=== PATIENT | male | born 1965 | race Caucasian/White ===

== ENCOUNTER 2016-06-15 20:25 | Inpatient (IN) | payer MEDICARE, MEDICAID ==
[~2016-06-15] VITALS: Ht 165.1 cm; Wt 78.0 kg
[2016-06-15 20:00] VITALS: BP 119/82
[~2016-06-15 20:25] MED LIST: ASPI325T2 PO; CALC667C4 PO; CINA30 PO; CLOP75TA33 PO; COR12 PO; KEPP500 PO; LOSA50TA20 PO; MEMA10TA11 PO; MEMA1CAP PO; NEPVIT PO; PANT40TA4 PO; PRAV80TA21 PO; RANO500T3 PO
[2016-06-15 21:30] VITALS: BP 119/82
[2016-06-15] MEDS ORDERED: DIPHENHYDRAMINE 50MG/ML VIAL IV PRN (21:30)
[2016-06-15] MEDS ORDERED: LORAZEPAM 2MG/ML CPJ IV PRN (21:30)
[2016-06-15] MEDS ORDERED: CLONIDINE 0.1MG TABLET PO PRN (21:30)
[2016-06-15] MEDS ORDERED: ONDANSETRON HCL 4MG/2ML VIAL IV PRN (21:30)
[2016-06-15] MEDS ORDERED: NITROGLYCERIN 0.4MG TABLET SL SL PRN (21:30)
[2016-06-15] MEDS ORDERED: GUAIFENESIN 200MG/10ML SUGAR FREE UDC PO PRN (21:30)
[2016-06-15] MEDS ORDERED: TRAMADOL 50MG TABLET PO PRN (21:30)
[2016-06-15] MEDS ORDERED: IPRATROPIUM/ALBUTEROL 0.5-3(2.5)MG/3ML NEB HHN PRN (21:30)
[2016-06-15] MEDS ORDERED: ZOLPIDEM TARTRATE 5MG TABLET PO PRN (21:30)
[2016-06-15] MEDS ORDERED: DOCUSATE SODIUM 100MG CAPSULE PO PRN (21:30)
[2016-06-15] MEDS ORDERED: DEXTROSE 50% WATER 50ML SYRINGE IV PRN (21:30)
[2016-06-15] MEDS ORDERED: ACETAMINOPHEN 325MG TABLET PO PRN (21:30)
[2016-06-15] MEDS: BLOOD SUGAR DIAGNOSTIC STRIP TEST SCH (22:00)
[2016-06-15] MEDS: INSULIN LISPRO 100 UNITS/ML SUBCUT SCH (22:00)
[2016-06-15] MEDS: CARVEDILOL 12.5MG TABLET PO SCH (22:55)
[2016-06-15] MEDS: LEVETIRACETAM 500MG TABLET PO SCH (23:13)
[2016-06-15] MEDS: ATORVASTATIN CALCIUM 40MG TABLET PO SCH (23:13)
[2016-06-16] MEDS: BLOOD SUGAR DIAGNOSTIC STRIP TEST SCH ×4 (06:57→20:56)
[2016-06-16] MEDS: INSULIN LISPRO 100 UNITS/ML SUBCUT SCH ×4 (06:57→22:03)
[2016-06-16 07:11] LABS: BASOPHILS % 1.1 % (0.0-2.0); EOSINOPHILS % 5.1 % (0.0-5.0); HEMATOCRIT. 32.8 % (42.0-52.0); HEMOGLOBIN. 11.1 g/dL (14.0-18.0); LYMPHOCYTES % 36.2 % (20.0-50.0); MEAN CORPUSCULAR HEMOGLOBIN 33.3 pg (28.0-32.0); MEAN CORPUSCULAR HGB CONC 33.8 g/dL (31.0-37.0); MEAN CORPUSCULAR VOLUME 98.5 fL (80.0-94.0); MEAN PLATELET VOLUME 9.9 fl (7.4-10.4); MONOCYTES % 12.7 % (2.0-8.0); NEUTROPHILS % 44.9 % (40.0-76.0); PLATELET 148 x1000/uL (130-400); RED BLOOD CELL COUNT 3.33 mill/uL (4.7-6.1); RED CELL DISTRIBUTION WIDTH 13.2 % (11.6-14.6); WHITE BLOOD COUNT 6.9 x1000/uL (4.5-11.0)
[2016-06-16 07:24] LABS: ALANINE AMINOTRANSFERASE 35 IU/L (13-61); ALBUMIN 3.2 g/dL (3.4-5.0); ANION GAP 19; CALCIUM 8.2 mg/dL (8.5-10.1); CARBON DIOXIDE 25 mEq/L (21-32); CHLORIDE 96 mEq/L (98-107); INDEX HEMOLYSI 1 (1-3); INDEX ICTERIC 1 (1-4); INDEX LIPEMIC 1 (1-3); UREA NITROGEN BLOOD 52 mg/dL (7-21); eGFR 5 mL/min (>60)
[2016-06-16 07:28] LABS: PREALBUMIN 30.4 mg/dL (20.0-40.0)
[2016-06-16 07:59] VITALS: BP 153/83
[2016-06-16] MEDS: FAMOTIDINE 20MG TABLET PO SCH (08:55)
[2016-06-16] MEDS: SEVELAMER CARBONATE 800 MG TABLET PO SCH ×3 (08:55→16:44)
[2016-06-16] MEDS: LEVETIRACETAM 500MG TABLET PO SCH ×2 (08:56→20:54)
[2016-06-16] MEDS: CLOPIDOGREL 75MG TABLET PO SCH (08:56)
[2016-06-16] MEDS: FOLIC ACID/VITAMIN B COMP W-C TABLET PO SCH (08:56)
[2016-06-16] MEDS: ZINC SULFATE 220 MG ( 50 ) CAPSULE PO SCH (08:56)
[2016-06-16] MEDS: ENOXAPARIN 30MG/0.3ML SYR SUBCUT SCH (08:57)
[2016-06-16] MEDS: ASPIRIN 325MG EC TABLET PO SCH (08:57)
[2016-06-16] MEDS: CARVEDILOL 12.5MG TABLET PO SCH ×2 (09:00→20:56)
[2016-06-16] MEDS: LOSARTAN POTASSIUM 50 MG TABLET PO SCH (09:00)
[2016-06-16] MEDS: CINACALCET HCL 30MG TABLET PO SCH (16:44)
[2016-06-16 20:00] VITALS: BP 144/70
[2016-06-16] MEDS: ATORVASTATIN CALCIUM 40MG TABLET PO SCH (20:54)
[2016-06-17] MEDS: BLOOD SUGAR DIAGNOSTIC STRIP TEST SCH ×4 (06:18→20:44)
[2016-06-17] MEDS: INSULIN LISPRO 100 UNITS/ML SUBCUT SCH ×4 (06:19→21:00)
[2016-06-17 08:00] VITALS: BP 146/62
[2016-06-17] MEDS: FOLIC ACID/VITAMIN B COMP W-C TABLET PO SCH (09:17)
[2016-06-17] MEDS: FAMOTIDINE 20MG TABLET PO SCH (09:17)
[2016-06-17] MEDS: ZINC SULFATE 220 MG ( 50 ) CAPSULE PO SCH (09:17)
[2016-06-17] MEDS: CARVEDILOL 12.5MG TABLET PO SCH ×2 (09:17→21:26)
[2016-06-17] MEDS: CLOPIDOGREL 75MG TABLET PO SCH (09:17)
[2016-06-17] MEDS: SEVELAMER CARBONATE 800 MG TABLET PO SCH ×3 (09:17→19:03)
[2016-06-17] MEDS: LEVETIRACETAM 500MG TABLET PO SCH ×2 (09:17→21:26)
[2016-06-17] MEDS: LOSARTAN POTASSIUM 50 MG TABLET PO SCH (09:17)
[2016-06-17] MEDS: ENOXAPARIN 30MG/0.3ML SYR SUBCUT SCH (09:18)
[2016-06-17] MEDS: ASPIRIN 325MG EC TABLET PO SCH (09:19)
[2016-06-17] MEDS ORDERED: DEXTROSE 50% WATER 50ML SYRINGE IV PRN (10:45)
[2016-06-17] MEDS: LACTULOSE 20G/30ML UDC PO NR ×3 (12:00→21:25)
[2016-06-17] MEDS: CINACALCET HCL 30MG TABLET PO SCH (16:52)
[2016-06-17] MEDS: DOCUSATE SODIUM 100MG CAPSULE PO SCH (16:52)
[2016-06-17 20:00] VITALS: BP 134/73
[2016-06-17] MEDS: POLYETHYLENE GLYCOL 3350 (17GM) 1 DOSE PACK PO SCH (21:25)
[2016-06-17] MEDS: ATORVASTATIN CALCIUM 40MG TABLET PO SCH (21:25)
[2016-06-18] MEDS: INSULIN LISPRO 100 UNITS/ML SUBCUT SCH ×4 (05:54→21:00)
[2016-06-18] MEDS: BLOOD SUGAR DIAGNOSTIC STRIP TEST SCH ×4 (05:54→21:52)
[2016-06-18 07:10] LABS: BASOPHILS % 0.9 % (0.0-2.0); EOSINOPHILS % 4.5 % (0.0-5.0); HEMATOCRIT. 30.8 % (42.0-52.0); HEMOGLOBIN. 10.2 g/dL (14.0-18.0); LYMPHOCYTES % 33.3 % (20.0-50.0); MEAN CORPUSCULAR HEMOGLOBIN 32.9 pg (28.0-32.0); MEAN CORPUSCULAR HGB CONC 33.2 g/dL (31.0-37.0); MEAN CORPUSCULAR VOLUME 99.3 fL (80.0-94.0); MEAN PLATELET VOLUME 9.7 fl (7.4-10.4); MONOCYTES % 12.7 % (2.0-8.0); NEUTROPHILS % 48.6 % (40.0-76.0); PLATELET 149 x1000/uL (130-400); RED CELL DISTRIBUTION WIDTH 13.4 % (11.6-14.6); WHITE BLOOD COUNT 6.5 x1000/uL (4.5-11.0)
[2016-06-18 07:25] LABS: FERRITIN 1596 ng/mL (22-322)
[2016-06-18 07:31] LABS: CALCIUM 8.2 mg/dL (8.5-10.1); MAGNESIUM 2.4 mg/dL (1.8-2.4); PHOSPHORUS 4.4 mg/dL (2.5-4.9)
[2016-06-18 07:36] LABS: THYROID STIMULATING HORMONE 1.9 uIU/mL (0.36-3.74)
[2016-06-18 08:00] VITALS: BP 156/94
[2016-06-18] MEDS: FOLIC ACID/VITAMIN B COMP W-C TABLET PO SCH (08:34)
[2016-06-18] MEDS: ZINC SULFATE 220 MG ( 50 ) CAPSULE PO SCH (08:34)
[2016-06-18] MEDS: CLOPIDOGREL 75MG TABLET PO SCH (08:34)
[2016-06-18] MEDS: LEVETIRACETAM 500MG TABLET PO SCH ×2 (08:34→21:45)
[2016-06-18] MEDS: LOSARTAN POTASSIUM 50 MG TABLET PO SCH (08:34)
[2016-06-18] MEDS: FAMOTIDINE 20MG TABLET PO SCH (08:35)
[2016-06-18] MEDS: DOCUSATE SODIUM 100MG CAPSULE PO SCH ×2 (08:35→16:59)
[2016-06-18] MEDS: CARVEDILOL 12.5MG TABLET PO SCH ×2 (08:35→21:46)
[2016-06-18] MEDS: ASPIRIN 325MG EC TABLET PO SCH (08:35)
[2016-06-18] MEDS: ENOXAPARIN 30MG/0.3ML SYR SUBCUT SCH (08:36)
[2016-06-18] MEDS: SEVELAMER CARBONATE 800 MG TABLET PO SCH ×3 (08:37→16:59)
[2016-06-18] MEDS: LACTULOSE 20G/30ML UDC PO NR (08:41)
[2016-06-18 12:36] LABS: INDEX HEMOLYSI 1 (1-3)
[2016-06-18 12:53] LABS: VITAMIN B12 SERUM 999 pg/mL (211-911)
[2016-06-18 12:54] LABS: FOLIC ACID (FOLATE) SERUM > 20.00 ng/mL (>5.38)
[2016-06-18] MEDS: CINACALCET HCL 30MG TABLET PO SCH (16:59)
[2016-06-18 20:00] VITALS: BP 135/67
[2016-06-18] MEDS: ATORVASTATIN CALCIUM 40MG TABLET PO SCH (21:45)
[2016-06-18] MEDS: POLYETHYLENE GLYCOL 3350 (17GM) 1 DOSE PACK PO SCH (21:46)
[2016-06-19] MEDS: BLOOD SUGAR DIAGNOSTIC STRIP TEST SCH ×4 (06:41→20:57)
[2016-06-19] MEDS: INSULIN LISPRO 100 UNITS/ML SUBCUT SCH ×4 (06:43→20:57)
[2016-06-19 08:00] VITALS: BP 164/95
[2016-06-19] MEDS: ENOXAPARIN 30MG/0.3ML SYR SUBCUT SCH (08:39)
[2016-06-19] MEDS: ASPIRIN 325MG EC TABLET PO SCH (08:40)
[2016-06-19] MEDS: FAMOTIDINE 20MG TABLET PO SCH (08:40)
[2016-06-19] MEDS: ZINC SULFATE 220 MG ( 50 ) CAPSULE PO SCH (08:40)
[2016-06-19] MEDS: FOLIC ACID/VITAMIN B COMP W-C TABLET PO SCH (08:40)
[2016-06-19] MEDS: DOCUSATE SODIUM 100MG CAPSULE PO SCH ×2 (08:40→17:41)
[2016-06-19] MEDS: SEVELAMER CARBONATE 800 MG TABLET PO SCH ×3 (08:40→17:40)
[2016-06-19] MEDS: LEVETIRACETAM 500MG TABLET PO SCH ×2 (08:40→21:26)
[2016-06-19] MEDS: CARVEDILOL 12.5MG TABLET PO SCH ×2 (08:41→21:26)
[2016-06-19] MEDS: CLOPIDOGREL 75MG TABLET PO SCH (08:41)
[2016-06-19] MEDS: LOSARTAN POTASSIUM 50 MG TABLET PO SCH (08:41)
[2016-06-19 15:38] LABS: BASOPHILS % 0.9 % (0.0-2.0); EOSINOPHILS % 4.4 % (0.0-5.0); HEMATOCRIT. 30.2 % (42.0-52.0); HEMOGLOBIN. 10.1 g/dL (14.0-18.0); LYMPHOCYTES % 25.8 % (20.0-50.0); MEAN CORPUSCULAR HEMOGLOBIN 32.9 pg (28.0-32.0); MEAN CORPUSCULAR HGB CONC 33.3 g/dL (31.0-37.0); MEAN CORPUSCULAR VOLUME 98.7 fL (80.0-94.0); MEAN PLATELET VOLUME 9.2 fl (7.4-10.4); MONOCYTES % 10.3 % (2.0-8.0); NEUTROPHILS % 58.6 % (40.0-76.0); PLATELET 140 x1000/uL (130-400); RED BLOOD CELL COUNT 3.06 mill/uL (4.7-6.1); RED CELL DISTRIBUTION WIDTH 13.4 % (11.6-14.6)
[2016-06-19 15:45] LABS: CALCIUM 8.3 mg/dL (8.5-10.1)
[2016-06-19] MEDS: CINACALCET HCL 30MG TABLET PO SCH (17:41)
[2016-06-19] MEDS: ATORVASTATIN CALCIUM 40MG TABLET PO SCH (21:26)
[2016-06-19] MEDS: POLYETHYLENE GLYCOL 3350 (17GM) 1 DOSE PACK PO SCH (21:26)
[2016-06-20 08:00] VITALS: BP 89/45
[2016-06-20] MEDS: INSULIN LISPRO 100 UNITS/ML SUBCUT SCH ×4 (09:00→21:00)
[2016-06-20] MEDS: LOSARTAN POTASSIUM 50 MG TABLET PO SCH (09:00)
[2016-06-20] MEDS: CARVEDILOL 12.5MG TABLET PO SCH ×2 (09:00→22:03)
[2016-06-20] MEDS: SEVELAMER CARBONATE 800 MG TABLET PO SCH ×3 (09:27→17:10)
[2016-06-20] MEDS: LEVETIRACETAM 500MG TABLET PO SCH ×2 (09:27→22:03)
[2016-06-20] MEDS: ACETAMINOPHEN 500MG TABLET PO PRN (09:27)
[2016-06-20] MEDS: CLOPIDOGREL 75MG TABLET PO SCH (09:27)
[2016-06-20] MEDS: FAMOTIDINE 20MG TABLET PO SCH (09:27)
[2016-06-20] MEDS: DOCUSATE SODIUM 100MG CAPSULE PO SCH ×2 (09:27→17:00)
[2016-06-20] MEDS: ZINC SULFATE 220 MG ( 50 ) CAPSULE PO SCH (09:27)
[2016-06-20] MEDS: FOLIC ACID/VITAMIN B COMP W-C TABLET PO SCH (09:27)
[2016-06-20] MEDS: ASPIRIN 325MG EC TABLET PO SCH (09:27)
[2016-06-20] MEDS: ENOXAPARIN 30MG/0.3ML SYR SUBCUT SCH (09:28)
[2016-06-20] MEDS: BLOOD SUGAR DIAGNOSTIC STRIP TEST SCH ×4 (11:15→21:00)
[2016-06-20 16:05] VITALS: BP 152/88
[2016-06-20] MEDS: CINACALCET HCL 30MG TABLET PO SCH (17:10)
[2016-06-20 20:00] VITALS: BP 168/93
[2016-06-20] MEDS: POLYETHYLENE GLYCOL 3350 (17GM) 1 DOSE PACK PO SCH (22:02)
[2016-06-20] MEDS: ATORVASTATIN CALCIUM 40MG TABLET PO SCH (22:05)
[2016-06-21] MEDS: BLOOD SUGAR DIAGNOSTIC STRIP TEST SCH ×4 (07:02→21:00)
[2016-06-21] MEDS: INSULIN LISPRO 100 UNITS/ML SUBCUT SCH ×4 (07:02→21:00)
[2016-06-21 07:19] LABS: 25-HYDROXY VITAMIN D3 14 ng/mL (.)
[2016-06-21 08:00] VITALS: BP 125/80
[2016-06-21] MEDS: LOSARTAN POTASSIUM 50 MG TABLET PO SCH (09:00)
[2016-06-21] MEDS: ENOXAPARIN 30MG/0.3ML SYR SUBCUT SCH (10:00)
[2016-06-21] MEDS: ASPIRIN 325MG EC TABLET PO SCH (10:17)
[2016-06-21] MEDS: LEVETIRACETAM 500MG TABLET PO SCH ×2 (10:17→22:03)
[2016-06-21] MEDS: FOLIC ACID/VITAMIN B COMP W-C TABLET PO SCH (10:18)
[2016-06-21] MEDS: CLOPIDOGREL 75MG TABLET PO SCH (10:18)
[2016-06-21] MEDS: FAMOTIDINE 20MG TABLET PO SCH (10:18)
[2016-06-21] MEDS: SEVELAMER CARBONATE 800 MG TABLET PO SCH ×2 (10:18→16:39)
[2016-06-21] MEDS: ZINC SULFATE 220 MG ( 50 ) CAPSULE PO SCH (10:18)
[2016-06-21] MEDS: DOCUSATE SODIUM 100MG CAPSULE PO SCH ×2 (10:19→16:30)
[2016-06-21] MEDS: CARVEDILOL 12.5MG TABLET PO SCH ×2 (10:25→22:04)
[2016-06-21] MEDS ORDERED: ERGOCALCIFEROL 50000UNITS CAPSULE PO SCH (12:30)
[2016-06-21] MEDS: CINACALCET HCL 30MG TABLET PO SCH (16:26)
[2016-06-21 20:00] VITALS: BP 167/78
[2016-06-21] MEDS: POLYETHYLENE GLYCOL 3350 (17GM) 1 DOSE PACK PO SCH (21:00)
[2016-06-21] MEDS: ATORVASTATIN CALCIUM 40MG TABLET PO SCH (22:03)
[2016-06-22 06:17] LABS: BASOPHILS % 0.6 % (0.0-2.0); EOSINOPHILS % 4.6 % (0.0-5.0); HEMATOCRIT. 28.6 % (42.0-52.0); HEMOGLOBIN. 9.7 g/dL (14.0-18.0); LYMPHOCYTES % 27.9 % (20.0-50.0); MEAN CORPUSCULAR HEMOGLOBIN 33.3 pg (28.0-32.0); MEAN PLATELET VOLUME 9.2 fl (7.4-10.4); MONOCYTES % 12.9 % (2.0-8.0); PLATELET 142 x1000/uL (130-400); RED BLOOD CELL COUNT 2.92 mill/uL (4.7-6.1); RED CELL DISTRIBUTION WIDTH 13.4 % (11.6-14.6); WHITE BLOOD COUNT 7.9 x1000/uL (4.5-11.0)
[2016-06-22] MEDS: BLOOD SUGAR DIAGNOSTIC STRIP TEST SCH ×4 (06:59→21:00)
[2016-06-22] MEDS: INSULIN LISPRO 100 UNITS/ML SUBCUT SCH ×4 (07:00→21:00)
[2016-06-22 07:04] LABS: CALCIUM 8.2 mg/dL (8.5-10.1)
[2016-06-22 07:58] VITALS: BP 153/84
[2016-06-22] MEDS: ZINC SULFATE 220 MG ( 50 ) CAPSULE PO SCH (08:26)
[2016-06-22] MEDS: ASPIRIN 325MG EC TABLET PO SCH (08:26)
[2016-06-22] MEDS: CLOPIDOGREL 75MG TABLET PO SCH (08:26)
[2016-06-22] MEDS: FOLIC ACID/VITAMIN B COMP W-C TABLET PO SCH (08:26)
[2016-06-22] MEDS: FAMOTIDINE 20MG TABLET PO SCH (08:26)
[2016-06-22] MEDS: LOSARTAN POTASSIUM 50 MG TABLET PO SCH (08:27)
[2016-06-22] MEDS: SEVELAMER CARBONATE 800 MG TABLET PO SCH ×3 (08:27→16:15)
[2016-06-22] MEDS: LEVETIRACETAM 500MG TABLET PO SCH ×2 (08:27→23:43)
[2016-06-22] MEDS: ENOXAPARIN 30MG/0.3ML SYR SUBCUT SCH (08:27)
[2016-06-22] MEDS: DOCUSATE SODIUM 100MG CAPSULE PO SCH ×2 (08:27→16:14)
[2016-06-22] MEDS: CARVEDILOL 12.5MG TABLET PO SCH ×2 (08:27→23:43)
[2016-06-22] MEDS: CINACALCET HCL 30MG TABLET PO SCH (16:14)
[2016-06-22 20:00] VITALS: BP 159/78
[2016-06-22] MEDS: POLYETHYLENE GLYCOL 3350 (17GM) 1 DOSE PACK PO SCH (21:00)
[2016-06-22] MEDS: ATORVASTATIN CALCIUM 40MG TABLET PO SCH (23:46)
[2016-06-23] MEDS: BLOOD SUGAR DIAGNOSTIC STRIP TEST SCH (06:26)
[2016-06-23 08:00] VITALS: BP 165/81
[2016-06-23] MEDS: ZINC SULFATE 220 MG ( 50 ) CAPSULE PO SCH (08:34)
[2016-06-23] MEDS: DOCUSATE SODIUM 100MG CAPSULE PO SCH (08:34)
[2016-06-23] MEDS: FOLIC ACID/VITAMIN B COMP W-C TABLET PO SCH (08:34)
[2016-06-23] MEDS: FAMOTIDINE 20MG TABLET PO SCH (08:34)
[2016-06-23] MEDS: CLOPIDOGREL 75MG TABLET PO SCH (08:34)
[2016-06-23] MEDS: SEVELAMER CARBONATE 800 MG TABLET PO SCH (08:34)
[2016-06-23] MEDS: LEVETIRACETAM 500MG TABLET PO SCH (08:35)
[2016-06-23] MEDS: ASPIRIN 325MG EC TABLET PO SCH (08:35)
[2016-06-23] MEDS: LOSARTAN POTASSIUM 50 MG TABLET PO SCH (08:35)
[2016-06-23] MEDS: CARVEDILOL 12.5MG TABLET PO SCH (08:35)
[2016-06-23] MEDS: ENOXAPARIN 30MG/0.3ML SYR SUBCUT SCH (08:36)
[2016-06-23] MEDS: INSULIN LISPRO 100 UNITS/ML SUBCUT SCH (08:40)
[2016-06-23] MEDS: ACETAMINOPHEN 500MG TABLET PO PRN (08:42)
[2016-06-23 11:47] VITALS: BP 165/81
== END 2016-06-23 12:15 | disposition home health service (06) | DRG 64 ==
PROVIDERS: ADMIT Physical Medicine & Rehabilitation Spinal Cord Injury Medicine; ATTEND Internal Medicine
PROC: 5A1D60Z (ICD-10-PCS; principal; 2016-06-16)
DX: I63.9 Cerebral infarction, unspecified (principal); N18.6 End stage renal disease; I12.0 Hypertensive chronic kidney disease with stage 5 chronic kidney disease or end stage renal disease; G81.91 Hemiplegia, unspecified affecting right dominant side; E87.1 Hypo-osmolality and hyponatremia; E44.1 Mild protein-calorie malnutrition; I42.9 Cardiomyopathy, unspecified; I25.10 Atherosclerotic heart disease of native coronary artery without angina pectoris; E11.22 Type 2 diabetes mellitus with diabetic chronic kidney disease; G40.909 Epilepsy, unspecified, not intractable, without status epilepticus; R47.01 Aphasia; R13.10 Dysphagia, unspecified; R47.1 Dysarthria and anarthria; F39 Unspecified mood [affective] disorder; H54.41 Blindness, right eye, normal vision left eye; R53.81 Other malaise; R26.9 Unspecified abnormalities of gait and mobility; E78.00 Pure hypercholesterolemia, unspecified; F01.50 Vascular dementia, unspecified severity, without behavioral disturbance, psychotic disturbance, mood disturbance, and anxiety; D63.8 Anemia in other chronic diseases classified elsewhere; E55.9 Vitamin D deficiency, unspecified; E87.5 Hyperkalemia; Z68.28 Body mass index [BMI] 28.0-28.9, adult; Z99.2 Dependence on renal dialysis; Z86.73 Personal history of transient ischemic attack (TIA), and cerebral infarction without residual deficits; Z79.4 Long term (current) use of insulin; Z95.1 Presence of aortocoronary bypass graft; Z79.82 Long term (current) use of aspirin; Z79.02 Long term (current) use of antithrombotics/antiplatelets
CPT/HCPCS: 36415; 80048; 80053; 80061; 82306; 82607; 82728; 82746; 82962; 83036; 83540; 83550; 83735; 84100; 84134; 84443; 84630; 85025; 92523; 93970; 97110; 97112; 97116; 97162; 97167; 97530; 97532; 97535; J1650; J1815; J7030